=== PATIENT | male | born 1955 | race Caucasian/White ===

== ENCOUNTER 2021-10-25 17:01 | Emergency (ER) | payer OTHER ==
[2021-10-25] MEDS ORDERED: Albuterol/Ipratropium 3.0-0.5 MG/3 ML Neb Soln NEB ONE (17:45)
[2021-10-25 18:23] LABS: TROPONIN I HIGH SENSITIVITY 10.1 pg/mL (<=60.3)
[2021-10-25 18:30] LABS: CORONAVIRUS COVID-19 NAA NEGATIVE (NEGATIVE)
== END 2021-10-25 18:46 | disposition home or self-care (01) ==
LOC: JP.ED 17:01
DX: J45.40 Moderate persistent asthma, uncomplicated (principal); J20.9 Acute bronchitis, unspecified; I10 Essential (primary) hypertension; Z20.822 Contact with and (suspected) exposure to COVID-19
CPT/HCPCS: 0241U; 36415; 71046; 71046-26; 80048; 84484; 85025; 94640; 99282; 99285-25; J7620